=== PATIENT | female | born 1955 | race Hispanic/Latino ===

== ENCOUNTER 2022-02-23 17:04 | Emergency (ER) | payer OTHER, SELFPAY ==
[2022-02-23 17:57] LABS: Urine Blood Negative (Negative); Urine Glucose 3+ (Negative); Urine Protein Negative (Negative); Urine Specific Gravity 1.015 (1.005-1.030)
[2022-02-23 18:02] LABS: Hematocrit 40.4 % (36.0-45.0); Lymphocytes % 27.4 % (15.3-44.8); MCV 89.3 fL (80-100); MPV 8.1 fL (7.6-11.3); RBC Red Blood Cell Count 4.53 M/uL (3.86-4.86)
[2022-02-23 18:12] LABS: Albumin 3.8 g/dL (3.4-5.0); Bilirubin Total 0.4 mg/dL (0.2-1.0); Potassium 3.7 mmol/L (3.5-5.1)
[2022-02-23 18:23] LABS: Urine RBC <5 /HPF (None Seen)
--- NOTE | 2022-02-23 18:59 | RAD REPORT ---
EXAM DESCRIPTION: US - Abdomen Exam Limited - 02/23/2022 6:31 pm CLINICAL HISTORY: EPIGASTRIC PAIN COMPARISON: No comparisons FINDINGS: No gallstones, sludge or other abnormalities within the gallbladder lumen. There is no wal l thickening or pericholecystic fluid. No common duct stone or biliary tree dilatation identified. IMPRESSION: Normal gallbladder and biliary tree ultrasound.
--- NOTE | 2022-02-23 19:51 | RAD REPORT ---
EXAM DESCRIPTION: CT - Abdomen Pelvis W Contrast - 02/23/2022 7:37 pm CLINICAL HISTORY: ruq/epigastric abdomen pain COMPARISON: No comparisons TECHNIQUE: Biphasic, helical CT imaging of the abdomen and pelvis was performed following 100 ml non -ionic IV contrast. Oral contrast was given. All CT scans are performed using dose optimization technique as appropriate and may include automated exposure control or mA/KV adjustment according to patient size. FINDINGS: No suspicious findings in the lung bases. The liver, spleen, and pancreas show no suspicious findings. Gallbladder and biliary tree are also wi thout suspicious finding. Symmetric renal function is seen with no hydronephrosis or suspicious renal mass. No pyelonephritis o r acute parenchymal process. No bladder abnormalities. No adrenal abnormalities. Age appropriate atro phy of the uterus and ovaries noted. No SERVICE LINE LAYER abnormality seen. No dilated bowel loops or bowel wall thickening. Appendix is normal. No active GI process seen. No free air, free fluid or inflammatory stranding. No hernia, mass or bulky lymphadenopathy. No suspicious bony findings. IMPRESSION: Contrast enhanced CT abdomen and pelvis showing no acute or emergent finding.
--- NOTE | 2022-02-23 20:10 | RAD REPORT ---
EXAM DESCRIPTION: RAD - Chest Single View - 02/23/2022 7:53 pm CLINICAL HISTORY: upper abdomen pain COMPARISON: None TECHNIQUE: AP portable chest image was obtained 02/23/2022 7:53 pm . FINDINGS: No focal lung parenchymal process. Interstitial pattern is accentuated by under penetrated portable technique and overlying soft tissues. Acute lung parenchymal process is not suspected. No s ignificant failure or volume overload. Heart and vasculature are normal. No measurable pleural effusion and no pneumothorax. No acute bony abnormality seen. No acute aortic findings suspected. IMPRESSION: No acute cardiopulmonary process.
--- NOTE | 2022-02-23 20:31 | ER ---
Nurse's Notes [facility] Name: Jailene Vences Age: 66 yrs Sex: Female : 1955 Arrival Date: 02/23/2022 Time: 17:08 Bed 26 Private MD: Diagnosis: Upper abdominal pain, unspecified Presentation: 02/23 17:27 Chief complaint: Patient states: RUQ abdominal pain x 3 days, denies N/V/D, last BM jl7 today and a little hard. Coronavirus screen: At this time, the client does not indicate any symptoms associated with coronavirus-19. Ebola Screen: No symptoms or risks identified at this time. Initial Sepsis Screen: Does the patient meet any 2 criteria? No. Patient's initial sepsis screen is negative. Does the patient have a suspected source of infection? No. Patient's initial sepsis screen is negative. Risk Assessment: Do you want to hurt yourself or someone else? Patient reports no desire to harm self or others. Onset of symptoms was February 21, 2022. 17:27 Method Of Arrival: Ambulatory 7 17:27 Acuity: REG 3 jl7 Triage Assessment: 17:29 General: Appears in no apparent distress. uncomfortable, Behavior is calm, cooperative, jl7 appropriate for age. Pain: Complains of pain in right upper quadrant Pain currently is 3 out of 10 on a pain scale. at worst was 8 out of 10 on a pain scale. Historical: - Allergies: 17:29 Levofloxacin; jl7 - PMHx: 17:29 Diabetes mellitus; Hypothyroidism; Hypertensive disorder; Hypercholesterolemia; jl7 - PSHx: 17:29 section; jl7 - Immunization history:: Adult Immunizations unknown, Client reports having NOT received the Covid vaccine. - Social history:: Smoking status: Patient denies any tobacco usage or history of. Screenin:44 Abuse screen: Denies threats or abuse. Denies injuries from another. Nutritional ld1 screening: No deficits noted. Tuberculosis screening: No symptoms or risk factors identified. Fall Risk None identified. Assessment: 17:44 General: Appears in no apparent distress. comfortable, Behavior is calm, cooperative, ld1 appropriate for age. Pain: Complains of pain in right upper quadrant Pain does not radiate. Pain currently is 7 out of 10 on a pain scale. Quality of pain is described as throbbing. Neuro: Level of Consciousness is awake, alert, obeys commands, Oriented to person, place, time, situation. Cardiovascular: Capillary refill < 3 seconds Patient's skin is warm and dry. Respiratory: Airway is patent Respiratory effort is even, unlabored. GI: Abdomen is round non-distended, Reports upper abdominal pain. : No signs and/or symptoms were reported regarding the genitourinary system. EENT: No signs and/or symptoms were reported regarding the EENT system. Derm: No signs and/or symptoms reported regarding the dermatologic system. Musculoskeletal: No signs and/or symptoms reported regarding the musculoskeletal system. 21:01 Reassessment: Patient is alert, oriented x 3, equal unlabored respirations, skin bb warm/dry/pink. pt and family verbalized understanding of and agree to plan of care discharge instructions given pt ambulated with steady gait to exit accompanied by family. Vital Signs: 17:27 BP 126 / 59; Pulse 77; Resp 15; Temp 98.2; Pulse Ox 100% ; Weight 79.38 kg; Height 5 jl7 ft. 4 in. (162.56 cm); Pain 3/10; 17:44 BP 148 / 74; Pulse 68; Resp 18; Pulse Ox 100% on R/A; Pain 7/10; ld1 18:40 BP 174 / 66; Pulse 69; Resp 18; Pulse Ox 100% on R/A; ld1 21:03 BP 146 / 73; Pulse 71; Resp 16 S; Pulse Ox 100% on R/A; bb 17:27 Body Mass Index 30.04 (79.38 kg, 162.56 cm) jl7 ED Course: 17:08 Patient arrived in ED. rg4 17:19 Kai Gonzales PA is PHCP. cp 17:19 Luis Enrique Navas DO is Attending Physician. cp 17:29 Triage completed. jl7 17:29 Arm band placed on right wrist. jl7 17:36 Teodora Moise, TONIA is Primary Nurse. ld1 17:44 Patient has correct armband on for positive identification. Placed in gown. Bed in low ld1 position. Call light in reach. Side rails up X2. equipment monitor phototypesetting on. Pulse ox on. NIBP on. Door closed. Noise minimized. Warm blanket given. 17:44 No provider procedures requiring assistance completed. Inserted saline lock: 20 gauge ld1 in right antecubital area, using aseptic technique. Blood collected. 18:33 US Abdomen Limited: gallbladder In Process Unspecified. EDMS 19:39 CT Abd/Pelvis - IV Contrast Only In Process Unspecified. EDMS 19:55 XRAY Chest (1 view) In Process Unspecified. EDMS 21:03 IV discontinued, intact, bleeding controlled, No redness/swelling at site. Pressure bb dressing applied. Administered Medications: 18:10 Drug: Pepcid (famotidine) 20 mg Route: IVP; Site: right antecubital; ld1 18:10 Drug: Zofran (Ondansetron) 4 mg Route: IVP; Site: right antecubital; ld1 18:52 Drug: NS 0.9% 500 ml Route: IV; Rate: bolus; Site: right antecubital; ld1 Medication: 17:44 VIS not applicable for this client. ld1 Outcome: 20:31 Discharge ordered by MD. dina 21:02 Discharged to home ambulatory, with family. bb 21:02 Condition: stable 21:02 Discharge instructions given to patient, family, Instructed on discharge instructions, follow up and referral plans. medication usage, Demonstrated understanding of instructions, follow-up care, medications, Prescriptions given X 2. 21:03 Patient left the ED. bb Signatures: Dispatcher [employer] EDMS Marisa García, RN RN bb Kai Gonzales PA PA cp Garcia, Rubi rg4 Lupe Porter RN RN jl7 Teodora Moise RN RN ld1
--- NOTE | 2022-02-23 20:31 | EDPHYS ---
Physician Documentation [facility] Name: Jailene Vences Age: 66 yrs Sex: Female : 1955 Arrival Date: 02/23/2022 Time: 17:08 Bed 26 Private MD: ED Physician Luis Enrique Navas HPI: 02/23 18:00 This 66 yrs old Female presents to ER via Ambulatory with complaints of Upper cp Abd Pain. 18:00 The patient presents with abdominal pain in the upper abdomen. cp 18:00 Onset: The symptoms/episode began/occurred 3 day(s) ago. cp 18:00 The symptoms do not radiate. Associated signs and symptoms: Pertinent positives: cp constipation, Pertinent negatives: nausea and vomiting, anorexia, chest pain, diarrhea, fever. The symptoms are described as waxing/waning. Historical: - Allergies: 17:29 Levofloxacin; jl7 - PMHx: 17:29 Diabetes mellitus; Hypothyroidism; Hypertensive disorder; Hypercholesterolemia; jl7 - PSHx: 17:29 section; jl7 - Immunization history:: Adult Immunizations unknown, Client reports having NOT received the Covid vaccine. - Social history:: Smoking status: Patient denies any tobacco usage or history of. ROS: 18:05 Constitutional: Negative for body aches, chills, fever, poor PO intake. cp 18:05 Respiratory: Negative for cough, shortness of breath, wheezing. 18:05 Abdomen/GI: Positive for abdominal pain, of the epigastric area and right upper quadrant, Negative for vomiting, diarrhea, constipation, anorexia. 18:05 Cardiovascular: Negative for chest pain, edema, palpitations. cp 18:05 Eyes: Negative for injury, pain, redness, and discharge. cp 18:05 ENT: Negative for drainage from ear(s), ear pain, sore throat, difficulty swallowing, difficulty handling secretions. 18:05 : Negative for urinary symptoms. 18:05 Neuro: Negative for altered mental status, headache, weakness. 18:05 All other systems are negative. Exam: 18:10 Constitutional: The patient appears in no acute distress, alert, awake, cp non-diaphoretic, non-toxic, well developed, well nourished. 18:10 Head/Face: Normocephalic, atraumatic. cp 18:10 Eyes: Periorbital structures: appear normal, Conjunctiva: normal, no exudate, no cp injection, Sclera: no appreciated abnormality, Lids and lashes: appear normal, bilaterally. 18:10 ENT: External ear(s): are unremarkable, Nose: is normal, Mouth: Lips: moist, Oral cp mucosa: normal, Posterior pharynx: Airway: no evidence of obstruction, patent. 18:10 Neck: ROM/movement: is normal, is supple, without pain, no range of motions limitations. 18:10 Chest/axilla: Inspection: normal. 18:10 Cardiovascular: Rate: normal, Rhythm: regular, Edema: is not appreciated, JVD: is not appreciated. 18:10 Respiratory: the patient does not display signs of respiratory distress, Respirations: normal, no use of accessory muscles, no retractions, labored breathing, is not present, Breath sounds: are clear throughout, no decreased breath sounds, no stridor, no wheezing. 18:10 Abdomen/GI: Inspection: abdomen appears normal, Bowel sounds: active, all quadrants, Palpation: soft, in all quadrants, mild abdominal tenderness, in the epigastric area and right upper quadrant, rebound tenderness, is not appreciated, involuntary guarding, is not appreciated. 18:10 Back: pain, is absent, ROM is normal, CVA tenderness, is absent. 18:10 Skin: no rash present. 18:10 Neuro: Orientation: to person, place \T\ time. Mentation: is normal, Motor: moves all fours, strength is normal, Sensation: is normal. Vital Signs: 17:27 BP 126 / 59; Pulse 77; Resp 15; Temp 98.2; Pulse Ox 100% ; Weight 79.38 kg; Height 5 jl7 ft. 4 in. (162.56 cm); Pain 3/10; 17:44 BP 148 / 74; Pulse 68; Resp 18; Pulse Ox 100% on R/A; Pain 7/10; ld1 18:40 BP 174 / 66; Pulse 69; Resp 18; Pulse Ox 100% on R/A; ld1 21:03 BP 146 / 73; Pulse 71; Resp 16 S; Pulse Ox 100% on R/A; bb 17:27 Body Mass Index 30.04 (79.38 kg, 162.56 cm) 7 MDM: 17:32 Patient medically screened. cp 20:30 Data reviewed: vital signs, nurses notes, lab test result(s), radiologic studies, CT cp scan, ultrasound, and as a result, I will discharge patient. 20:30 Counseling: I had a detailed discussion with the patient and/or guardian regarding: the cp historical points, exam findings, and any diagnostic results supporting the discharge/admit diagnosis, lab results, radiology results, to return to the emergency department if symptoms worsen or persist or if there are any questions or concerns that arise at home. Response to treatment: the patient's symptoms have markedly improved after treatment. Special discussion: Based on the patient's Hx, exam, and Dx evaluation, there is no indication for emergent surgery or inpatient Tx. It is understood by the patient/guardian that if the Sx's persist or worsen they need to return immediately for re-evaluation. 02/23 17:43 Order name: CBC with Diff; Complete Time: 18:24 ld1 02/23 17:43 Order name: CMP; Complete Time: 18:24 [facility] 02/23 17:43 Order name: Lipase; Complete Time: 18:24 ld 02/23 17:57 Order name: Urine Dipstick-Ancillary; Complete Time: 18:24 EDMS 02/23 17:58 Order name: Urine Microscopic Only; Complete Time: 18:24 cp 02/23 17:58 Order name: US Abdomen Limited: gallbladder; Complete Time: 19:19 02/23 19:19 Interpretation: Report reviewed. 02/23 17:43 Order name: IV Saline Lock; Complete Time: 17:43 [facility] 02/23 17:43 Order name: Labs collected and sent; Complete Time: 17:43 [facility] 02/23 17:43 Order name: Urine Dipstick-Ancillary (obtain specimen); Complete Time: 17:56 [facility] 02/23 18:43 Order name: CT Abd/Pelvis - IV Contrast Only; Complete Time: 20:22 02/23 19:19 Order name: XRAY Chest (1 view); Complete Time: 20:22 cp 02/23 17:58 Order name: NPO; Complete Time: 18:03 cp Administered Medications: 18:10 Drug: Pepcid (famotidine) 20 mg Route: IVP; Site: right antecubital; ld1 18:10 Drug: Zofran (Ondansetron) 4 mg Route: IVP; Site: right antecubital; ld1 18:52 Drug: NS 0.9% 500 ml Route: IV; Rate: bolus; Site: right antecubital; ld1 Disposition: 02/24 08:47 Co-signature as Attending Physician, Luis Enrique Navas DO I was immediately available on-site ms3 in the Emergency Department for consultation in the care of the patient. . Disposition Summary: 02/23/22 20:31 Discharge Ordered Location: Home cp Problem: new cp Symptoms: have improved cp Condition: Stable cp Diagnosis - Upper abdominal pain, unspecified cp Followup: cp - With: Private Physician - When: 2 - 3 days - Reason: Recheck today's complaints Discharge Instructions: - Discharge Summary Sheet cp - Abdominal Pain, Adult cp Forms: - Medication Reconciliation Form cp - Thank You Letter cp - Antibiotic Education cp - Prescription Opioid Use cp Prescriptions: - Protonix 40 mg Oral Tablet - take 1 tablet by ORAL route once daily; 30 tablet; Refills: 0, Product cp Selection Permitted - Zofran 4 mg Oral Tablet - take 1 tablet by ORAL route every 12 hours As needed; 20 tablet; Refills: 0, cp Product Selection Permitted Signatures: Dispatcher [employer] EDMS Kai Gonzales PA PA cp Lupe Porter RN RN jl7 Luis Enrique Navas DO DO ms3 Teodora Moise RN RN ld1
== END 2022-02-23 21:03 | disposition home or self-care (01) ==
LOC: ER 17:04
DX: R10.10 Upper abdominal pain, unspecified (principal)
CPT/HCPCS: 36415; 71045; 74177; 76705; 80053; 81003; 81015; 83690; 85025; 96374; 96375; 99284; Q9967

== ENCOUNTER 2023-04-11 14:35 | Emergency (ER) | payer OTHER ==
--- NOTE | 2023-04-11 14:59 | EDPHYS ---
Physician Documentation [facility] Name: Jailene Vences Age: 68 yrs Sex: Female : 1955 Arrival Date: 04/11/2023 Time: 14:35 Bed IW1 Private MD: ED Physician Tejinder Martel HPI: 04/11 15:01 This 68 yrs old Female presents to ER via Unassigned with complaints of Jaw ec2 Pain. 15:01 Patient arrives today due to concern for left-sided jaw pain. States that the pain been ec2 ongoing for approximately 6 days. States that the pain is intermittent without specific or alleviating factors, does state that she occasionally has worsened pain with chewing. States that she has noticed that the pain is also worse in the morning. Denies any fevers or chills, denies any rashes. States that she recently got over shingles on the opposite side. She states that she was seen by the dentist and had negative x-rays and was told she did not have any oral pathology.. Historical: - Allergies: 15:06 Levofloxacin; ss - PMHx: 15:06 diabetes mellitus; Hypercholesterolemia; Hypertensive disorder; Hypothyroidism; ss - PSHx: 15:06 section; ss - Immunization history:: Client reports receiving the 2nd dose of the Covid vaccine. - Social history:: Smoking status: Patient denies any tobacco usage or history of. ROS: 15:01 Constitutional: as per hpi ec2 Exam: 15:01 Constitutional: GEN: NAD Head: atraumatic Eyes: EOMI Ears: External ears are normal. ec2 Mouth: Oropharynx with appropriate opening, no malocclusion appreciated CV: regular rate LUNGS: no respiratory distress ABD: non-distended SKIN: no evidence of rashes, no evidence of vesicular rashes on the left side of the face MSK: no evidence of trauma NEURO: moves all extremities equally Vital Signs: 14:35 BP 129 / 71; Pulse 73; Resp 16; Temp 97.9(TE); Pulse Ox 100% on R/A; Weight 78.02 kg; ss Height 5 ft. 3 in. ; Pain /; 15:06 BP 129 / 71; Pulse 73; Resp 16; Temp 97.9(TE); Pulse Ox 100% on R/A; Weight 78.02 kg; ss Height 5 ft. 3 in. ; Pain /; 15:06 Body Mass Index 30.47 (78.02 kg, 160.02 cm) ss 14:35 Pain Scale: Adult ss 15:06 Pain Scale: Adult ss MDM: 14:39 Patient medically screened. ec2 15:01 Data reviewed: vital signs. ED course: Patient arrives today for evaluation of left jaw ec2 pain. Examination remarkable for well-appearing nontoxic individual is otherwise in no acute distress. Patient is having occasional pain with p.o. intake, possible she is having trigeminal neuralgia. Additionally I considered other process like shingles however has no vesicular rash. Regardless I will start her on gabapentin for neuropathic pain, I considered other process such as infections, bacterial, however do not see any focal erythema or warmth or discharge. Will defer any lab work, will defer antibiotic therapy. . Administered Medications: No medications were administered Disposition Summary: 04/11/23 14:58 Discharge Ordered Notes: Location: Home ec2 Condition: Stable ec2 Diagnosis - Atypical facial pain ec2 Discharge Instructions: - Discharge Summary Sheet ec2 - Trigeminal Neuralgia ec2 Forms: - Medication Reconciliation Form ec2 - Thank You Letter ec2 - Antibiotic Education ec2 - Prescription Opioid Use ec2 - Patient Portal Instructions ec2 - Leadership Thank You Letter ec2 Prescriptions: - gabapentin 300 mg Oral capsule - take 1 capsule ORAL route every 8 to 12 hours; 90 capsule; Refills: 0, Product ec2 Selection Permitted Signatures: Savannah Henley RN RN Tejinder Martel MD MD ec2
--- NOTE | 2023-04-11 15:08 | ER ---
Nurse's Notes [facility] Name: Jailene Vences Age: 68 yrs Sex: Female : 1955 Arrival Date: 04/11/2023 Time: 14:35 Bed IW1 Private MD: Diagnosis: Atypical facial pain Presentation: 04/11 14:35 Chief complaint: Patient states: jaw pain/ tenderness and swelling that has been ss ongoing since Wednesday. Worse in the mornings. Seen by a dentist and was told that perhaps it was from clenching her jaws at night. Getting over a case of shingles that involved the R side of her face. Coronavirus screen: Client denies travel out of the [place] in the last 14 days. Ebola Screen: Patient denies exposure to infectious person. Patient denies travel to an Ebola-affected area in the 21 days before illness onset. Initial Sepsis Screen: Does the patient meet any 2 criteria? No. Patient's initial sepsis screen is negative. Does the patient have a suspected source of infection? No. Patient's initial sepsis screen is negative. Risk Assessment: Do you want to hurt yourself or someone else? Patient reports no desire to harm self or others. Onset of symptoms. Onset of symptoms was April 06, 2023. 14:35 Method Of Arrival: Ambulatory ss 14:35 Acuity: REG 3 ss Historical: - Allergies: 15:06 Levofloxacin; ss - PMHx: 15:06 diabetes mellitus; Hypercholesterolemia; Hypertensive disorder; Hypothyroidism; ss - PSHx: 15:06 section; ss - Immunization history:: Client reports receiving the 2nd dose of the Covid vaccine. - Social history:: Smoking status: Patient denies any tobacco usage or history of. Assessment: 15:07 General: Appears in no apparent distress. comfortable, Behavior is calm, cooperative. ss Neuro: Level of Consciousness is awake, alert, obeys commands. Cardiovascular: Chest pain is denied. Respiratory: Airway is patent Respiratory effort is even, unlabored, Respiratory pattern is regular, symmetrical, Denies cough, shortness of breath. Derm: Skin is pink, warm \T\ dry. normal. Vital Signs: 14:35 BP 129 / 71; Pulse 73; Resp 16; Temp 97.9(TE); Pulse Ox 100% on R/A; Weight 78.02 kg; ss Height 5 ft. 3 in. ; Pain 1/10; 15:06 BP 129 / 71; Pulse 73; Resp 16; Temp 97.9(TE); Pulse Ox 100% on R/A; Weight 78.02 kg; ss Height 5 ft. 3 in. ; Pain 1/10; 15:06 Body Mass Index 30.47 (78.02 kg, 160.02 cm) ss 14:35 Pain Scale: Adult ss 15:06 Pain Scale: Adult ss ED Course: 14:38 Patient arrived in ED. mg5 14:39 Tejinder Martel MD is Attending Physician. ec2 15:06 Triage completed. ss 15:06 Arm band placed on right wrist. ss 15:07 No provider procedures requiring assistance completed. Patient did not have IV access ss during this emergency room visit. Administered Medications: No medications were administered Outcome: 14:58 Discharge ordered by . ec2 15:07 Discharged to home ambulatory, ss 15:07 Condition: good 15:07 Discharge instructions given to patient, family, Instructed on discharge instructions, follow up and referral plans. medication usage, Demonstrated understanding of instructions, follow-up care, medications, Prescriptions given X 1, 15:08 Patient left the ED. ss Signatures: Savannah Henley, RN RN Amy Iqbal 5 Tejinder Martel MD MD ec2
[2023-04-11 15:11] VITALS: BP 129/71; TEMP 97.9; O2SAT 100
== END 2023-04-11 15:08 | disposition home or self-care (01) ==
LOC: ER 14:35
DX: G50.1 Atypical facial pain (principal); R68.84 Jaw pain; Z88.3 Allergy status to other anti-infective agents
CPT/HCPCS: 99283